=== PATIENT | male | born 1965 | race Caucasian/White ===

== ENCOUNTER 2016-11-30 22:04 | Emergency (ER) | payer OTHER ==
[~2016-11-30] VITALS: Ht 182.9 cm; Wt 90.7 kg
[~2016-11-30 22:04] MED LIST: BUPR1FIL5 SL; EZET1TAB5 PO; LEVO100T PO; MODA100T2 PO
[2016-11-30 22:05] VITALS: BP 125/95
--- NOTE | 2016-11-30 23:01 | PHYS DOC ---
Past Medical History Past Medical History: Other Additional Past Medical Histor: SICK-SINUS SYNDROME Past Surgical History: Pacemaker Alcohol Use: Occasionally Additional Information: ETOH ON BOARD TONIGHT STATES 3-4 DRINKS Drug Use: Marijuana Social History Narrative: STATES MARIJUANA USE TONIGHT Adult General Chief Complaint Chief Complaint: [facility] HPI Patient is a 50 year old male who presents by EMS for syncope. She notes drinking alcohol and smoking marijuana tonight while at home with family. States he became lightheaded and felt he would pass out. He then ambulated to another room, family heard a crash like sound, and found him laying on the ground. He notes LOC. He notes minimal forehead pain without other pain. He denies confusion. Family is at bedside and notes he is at his mental baseline. He denies vision changes, neck pain, back pain, numbness, tingling, weakness, dizziness, chest pain, dyspnea, abdominal pain, extremity injury. Review of Systems Review of Systems Constitutional: Denies fever or chills [] Eyes: Denies change in visual acuity, redness, or eye pain [] HENT: Denies nasal congestion or sore throat [] Respiratory: Denies cough or shortness of breath [] Cardiovascular: No additional information not addressed in HPI [] GI: Denies abdominal pain, nausea, vomiting, bloody stools or diarrhea [] : Denies dysuria or hematuria [] Musculoskeletal: Denies back pain or joint pain [] Integument: Denies rash or skin lesions [] Neurologic: Denies focal weakness or sensory changes [] Endocrine: Denies polyuria or polydipsia [] Allergies Allergies Allergies Coded Allergies Type Severity Reaction Last Updated Verified No Known Drug Allergies 11/08/13 No Physical Exam Physical Exam Constitutional: Well developed, well nourished, no acute distress, non-toxic appearance. [] HENT: Normocephalic, bilateral TMs normal, oropharynx moist, no oral exudates, nose normal. Very small frontal hematoma with no palpable or visual skull deformity that is minimally tender. No le sign, hemotympanum, or raccoon eyes [] Eyes: PERRLA, EOMI, conjunctiva normal, no discharge. [] Neck: Normal range of motion, no tenderness, supple. [] Cardiovascular:Heart rate regular rhythm [] Lungs & Thorax: Bilateral breath sounds clear to auscultation [] Abdomen: Bowel sounds normal, soft, no tenderness. [] Skin: Warm, dry, no erythema, no rash. [] Back: No tenderness, no CVA tenderness. [] Extremities: No tenderness, ROM intact, no edema. [] Neurologic: Alert and oriented X 3, normal motor function, normal sensory function, no focal deficits noted, cranial nerves II through XII intact. [] Psychologic: Affect normal, judgement normal, mood normal. [] Current Patient Data Vital Signs Vital Signs Date Time Temp Pulse Resp B/P Pulse Ox O2 Delivery O2 Flow Rate FiO2 11/30/16 22:05 98.4 121 24 125/95 93 Room Air 98.4 Lab Values Laboratory Tests Test 11/30/16 23:07 Sodium Level 140mmol/L (136-145) Potassium Level 3.8mmol/L (3.5-5.1) Chloride Level 99mmol/L (98-107) Carbon Dioxide Level 28mmol/L (21-32) Anion Gap 13 (6-14) Blood Urea Nitrogen 16mg/dL (8-26) Creatinine 1.1mg/dL (0.7-1.3) Estimated GFR (Cockcroft-Gault) 70.9 Glucose Level 117mg/dL (70-99) H Calcium Level 9.3mg/dL (8.5-10.1) Laboratory Tests 11/30/16 23:07 EKG EKG EKG as interpreted by me as normal sinus rhythm, rate 99, OK 160, QTC 515, no ectopy, does not meet STEMI criteria Course & Med Decision Making Course & Med Decision Making Pertinent Labs and Imaging studies reviewed. (See chart for details) Appears well on exam. Workup is unremarkable. He is asymptomatic at this time. He is ambulatory with a steady gait. He would like to go home. Discussed alcohol and drug cessation. Return precautions given. He and family understand and agree with plan. Dragon Disclaimer Dragon Disclaimer This electronic medical record was generated, in whole or in part, using a voice recognition dictation system. Departure Departure Impression: Primary Impression: Syncope Additional Impression: Closed head injury Disposition: HOME, SELF-CARE Condition: STABLE Referrals: ROSEANN CASTILLO (PCP) Patient Instructions: Head Injury, Adult, [id number] Additional Instructions: Follow-up with your primary care doctor. Return for any concerns. Problem Qualifiers Primary Impression: Syncope Syncope type: unspecified Qualified Code: R55 - Syncope and collapse Additional Impression: Closed head injury Encounter type: initial encounter Qualified Code: S09.90XA - Unspecified injury of head, initial encounter Madhuri PLUMMER MD Nov 30, 2016 23:01
[2016-11-30 23:25] LABS: CALCIUM 9.3 mg/dL (8.5-10.1); CREATININE 1.1 mg/dL (0.7-1.3); GFR 70.9; POTASSIUM 3.8 mmol/L (3.5-5.1)
--- NOTE | 2016-12-01 12:51 | EKG ---
[facility] [address] [place] [address] Test Date: 2016-11-30 Test Time: 22:09:54 Pat Name: SELAM PATTON Department: Room: Gender: M [employer]: : [id number] Requested By: Madhuri PLUMMER Order Number: [id number] Reading MD: Measurements Intervals [place] Rate: 99 P: 47 MO: 160 QRS: 49 QRSD: 96 T: 21 QT: 402 QTc: 515 Interpretive Statements SINUS RHYTHM QRS(T) CONTOUR ABNORMALITY CONSIDER ANTEROSEPTAL MYOCARDIAL DAMAGE T ABNORMALITY IN ANTERIOR LEADS PROLONGED QT RI6.01 Unconfirmed report No previous ECG available for comparison
== END 2016-11-30 23:59 | disposition home or self-care (01) ==
LOC: ER 22:04
DX: R55 Syncope and collapse (principal); S09.90XA Unspecified injury of head, initial encounter; F12.10 Cannabis abuse, uncomplicated; Z95.0 Presence of cardiac pacemaker; W19.XXXA Unspecified fall, initial encounter; Y93.89 Activity, other specified; Y92.89 Other specified places as the place of occurrence of the external cause; Y99.8 Other external cause status
CPT/HCPCS: 36415; 80048; 93005; 99285-25